=== PATIENT | female | born 1955 | race Caucasian/White ===

== ENCOUNTER → 2019-09-12 | Outpatient (CLI) | payer OTHER, MEDICARE ==
--- NOTE | 2019-09-12 11:56 | RAD ---
Examination: 1. Ultrasound-guided right breast core needle biopsy. 2. Right breast diagnostic mammogram. INDICATION: 64-year-old woman with suspicious nodule in the lateral subareolar right breast identified on high-risk screening breast MRI. The nodule initially detected on MRI of 10/25/2018 showed suspicious enhancement on follow up MRI of 08/03/2019 and internal vascularity on correlated diagnostic breast ultrasound of September 05, 2019. COMPARISON: Mammogram of 10/10/2018, breast MRI of 10/25/2018, a breast MRI 08/03/2019, Limited right breast ultrasound of 09/05/2019. TECHNIQUE AND FINDINGS: Informed consent was obtained and an appropriate procedural pause observed. Using standard sterile technique, ultrasound guidance and local anesthesia, multiple 12-gauge core biopsy samples of the oval, parallel orientation circumscribed 9 mm mass at the right 10:00 position 2 cm from the nipple. 3 core biopsy samples were obtained and an S shaped biopsy marker was deployed through the guide at the site of biopsy. Hemostasis was assured with direct breast compression for 10 minutes and a digital right postprocedure mammogram was obtained. The right post procedure mammogram shows satisfactory deployment of the biopsy marker in the lateral periareolar right breast in satisfactory position. There were no apparent complications. The breast parenchyma has scattered fibroglandular densities. IMPRESSION: Successful ultrasound-guided right breast core needle biopsy of a 9 mm oval mass at the right 9:00 position 2 cm from the nipple. Pathology results are pending. An addendum will be issued once pathology results become available
--- NOTE | 2019-09-13 14:06 | PATHOLOGY ---
[facility] Accession Number: [id number] . 01 Material submitted: . breast - RIGHT BREAST, 9:00, 2CMFN. Modifiers: right, 9:00 . 01 Clinical history: . Right breast 9:00 2 cm from nipple . 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 (JPM:briana; 09/13/2019) S 09/13/2019 0910 Local . 02 Comment: There is no atypia or evidence of malignancy. The case is also examined by Dr. Gutierrez, who concurs with the diagnosis. (JPM:briana; 09/13/2019) . 02 Electronically signed: . Chris Emery MD, Pathologist NPI- [id number] . 01 Gross description: . The specimen is received in formalin, labeled "Miguel Walker, right breast". Received are multiple needle cores of fibrofatty tissue measuring 1.6 x 1.0 x 0.3 cm in aggregate dimensions. The specimen is submitted entirely in cassettes A1 through A3. The cold ischemic time is 5 minutes. The total formalin fixation time is 12 hours and 35 minutes. (CAA; 09/12/2019) QAC/QAC 09/12/2019 1523 Local . 02 Pathologist provided ICD-10: D24.1, N60.81 . 02 CPT . 973547 Specimen Comment: A courtesy copy of this report has been sent to [phone] Specimen Comment: Report sent to Performed at: [address], [place] [id number] MD Armaan Vee MD Phone: [phone] Performed at: [address] [id number] MD Chris Emery MD Phone: [phone]
== END | disposition home or self-care (01) ==
LOC: US 08:11
PROVIDERS: ATTEND Surgery
DX: N63.10 Unspecified lump in the right breast, unspecified quadrant (principal); D24.1 Benign neoplasm of right breast; N60.11 Diffuse cystic mastopathy of right breast; N60.81 Other benign mammary dysplasias of right breast; Z88.0 Allergy status to penicillin; Z88.1 Allergy status to other antibiotic agents
CPT/HCPCS: 19083; 77065; 88305; C1713; 19081; 76942

== ENCOUNTER → 2019-10-26 | Outpatient (CLI) | payer OTHER, MEDICARE ==
[~2019-10-26] MED LIST: AMLO5TAB10 PO; ASPI-630 PO; ATOR40TA59 PO; CYCL10TA2 PO; DULO60CA6 PO; FEXO180T81 PO; HYDR-2763 PO; METF500T16 PO; MONT10TA49 PO; TRIA1CAP3 PO
--- NOTE | 2019-10-26 13:14 | PAIN ---
DATE OF SERVICE: 10/26/2019 INITIAL CONSULTATION FOR PAIN CLINIC CHIEF COMPLAINT: Low back and right lower extremity pain. HISTORY OF PRESENT ILLNESS: This is a 64-year-old female who presents with history of pain in the low back, right lower extremity for about 2 months. She had a fall on her left side at that time, but had pain in the back and the leg prior to that, it has gotten much worse so since that time. The patient did have an MRI scan of the lumbar spine performed on 10/06/2019 showing multilevel degenerative disk disease with L3-L4 asymmetric facet arthropathy on the right compared to the left along with dorsal osteophyte disk complex with encroachment of the bilateral exiting neural foramen and bilateral lateral recesses more significantly present on the right compared to the left. It shows L4-L5 also [id number] right neural foraminal encroachment and mild left neural foraminal encroachment. The patient reports significant pain with activity, walking, standing, changing positions with pain radiating to the right lower extremity, posterior gluteus, posterolateral thigh, anterior thigh, anterior medial thigh, medial lower leg and calf. The patient reports it is constant, sharp, stabbing, throbbing, shooting with tingling, numbness in the leg, cramping and aching in the low back itself, worse at night, worse with standing, walking, changing positions, better with sitting or lying down, but it is awakening her from sleep at night often, probably every hour to 2 hours. The patient reports it does not affect her bowel or bladder control, but does affect her ability to walk. She is not using any assistive devices to ambulate. The patient has tried hydrocodone, muscle relaxers, ibuprofen, Tylenol. The patient reports a muscle relaxer and hydrocodone did help to a moderate extent. Ibuprofen and Tylenol have not been helpful. She has been doing physical therapy exercises on her own at home. Her primary care physician gave her physical therapy exercises to do as physical therapy was closed at that time due to coronavirus pandemic, but she is doing stretching and strengthening at home and trying to walk daily, but it is becoming more difficult because of the right leg is becoming much more fatigued and weak with activity. The patient reports her disability rating from 0-10, 10 being the worst, is a 7 with family home responsibilities and recreation and life support activities, 9 with social activity and occupation, 10 with sexual behavior and 2 with self-care activities. PAST MEDICAL HISTORY: Significant for COPD; type 2 diabetes; asthma, exercise-induced; hypertension; hyperlipidemia; squamous cell cancer of the skin; dizziness; depression; arthritis. PREVIOUS SURGERIES: Include breast biopsy multiple times, skin cancer excisions, tonsillectomy, oophorectomy and in the past. CURRENT MEDICATIONS: Include metformin, daily baby aspirin, duloxetine, Fe, amlodipine, atorvastatin, triamterene and montelukast. ALLERGIES: THE PATIENT IS ALLERGIC TO KEFLEX, PENICILLIN AND EGGS. FAMILY HISTORY: Significant for diabetes, depression, dementia, cancer, hypertension and heart disease. SOCIAL HISTORY: The patient does not drink alcohol. Does smoke 1 pack of cigarettes a day for the past 7 years. Does not use any illegal, illicit or recreational drugs. She is , lives with her spouse, lives locally in [place], [place]. Reports that she is currently not on disability, but is retired. REVIEW OF SYSTEMS: The patient's review of systems is positive for those items mentioned in history of present illness. All systems reviewed and otherwise negative. It is complete, full and well documented on the patient's chart. PHYSICAL EXAMINATION: VITAL SIGNS: The patient's blood pressure 138/80, pulse 88, respirations 16, temperature 98.0 degrees Fahrenheit, height is 5 feet 7-1/2 inches and weight is 199 pounds. GENERAL: The patient is awake, alert, oriented, appropriate, very pleasant demeanor. HEENT: Shows normocephalic, atraumatic. Extraocular movements are intact and symmetrical. Oral cavity: Mucous membranes moist and pink. Dentition is intact. NECK: Shows anterior throat supple without palpable lymphadenopathy noted. Swallow reflex symmetrical. CHEST: Shows normal on inspection. Breath sounds are clear bilaterally. HEART: Shows S1, S2 clear. No murmurs auscultated. ABDOMEN: Soft, nontender, nondistended. No palpable organomegaly is noted. No rebound or guarding demonstrated. BACK: Shows spine grossly in the midline. Normal appearing thoracic kyphosis and lumbar lordotic curvature. Lumbar paraspinous muscle shows symmetrical on inspection, on palpation shows some moderate tenderness diffusely throughout the upper, middle and lower distribution of paraspinous muscles, but without atrophy, hypertrophy, no asymmetry, no trigger points. No tenderness over the spinous processes, sacrum or sacroiliac regions bilaterally. The patient shows good rotational motion of lumbar spine, both laterally greater than 10 degrees right and left as well as extension greater than 10 degrees, forward flexion at 45 degrees. EXTREMITIES: Lower extremities show deep tendon reflexes at 2+ in the patellar, 1+ tendo-calcaneus tendons. Motor exam is strong with 4 on a scale of 5 on the right and 5/5 on the left. Peripheral pulses are 1+ posterior tibia. No peripheral edema is noted. Lower extremities are warm and dry to touch, equal in color and appearance. Straight leg raise noted to be positive on the right at about 40 degrees, decreased with knee flexion and the left side is negative. Gaenslen's and Ron's maneuvers are negative bilaterally. The patient is able to stand, stand on her toes without significant difficulty or loss of balance, is walking with a fairly antalgic gait, does appear to favor the right lower extremity with ambulation, even for a short distance in the office today, but not using any assistive devices to ambulate. SKIN: The patient's skin shows warm and dry, good turgor. No edema. No sores, rashes or bruising throughout. IMPRESSION: 1. This is a 64-year-old female with long history of low back pain and radicular pain, worse for about 2 months on the right side at L3-L4 dermatomal distribution. 2. MRI scan of lumbar spine as noted. 3. Type 2 diabetes. 4. Hypertension. 5. Arthritis. PLAN: Options were discussed with the patient including conservative medical management, physical therapies, interventional techniques and she would like to pursue interventional techniques. We discussed a lumbar epidural steroid injection using description as well as anatomical models and she would like to pursue this. We will wait for preauthorization with her insurance provider. In the meantime, the patient will try Medrol Dosepak. The patient was given instruction and side effects to be aware, especially increased blood glucose. The patient will return for a translaminar lumbar epidural steroid injection at the L3-L4 level for her clinical L3-L4 right-sided radiculopathy. The patient was given instruction as well as side effects to be aware with the Medrol Antonio and will return as scheduled. HARRISON GALVEZ MD DR: GORGE/nicole JOB#: [id number] / [id number] FIONA Mujica MD
== END ==
LOC: PNCL 09:06
PROVIDERS: ATTEND Anesthesiology
DX: M79.604 Pain in right leg (principal); M54.5 Low back pain; E11.9 Type 2 diabetes mellitus without complications; I10 Essential (primary) hypertension; E78.5 Hyperlipidemia, unspecified; J44.9 Chronic obstructive pulmonary disease, unspecified; M19.90 Unspecified osteoarthritis, unspecified site
CPT/HCPCS: G0463

== ENCOUNTER → 2019-11-09 | Outpatient (CLI) | payer OTHER, MEDICARE ==
[~2019-11-09] MED LIST changes: +IOHEXOL 180 MG/ML 10 ML VIAL. ONE; +methylPREDNISolone ACETATE 40 MG/ML VIAL. ONE; +methylPREDNISolone ACETATE 80 MG/ML VIAL. ONE
--- NOTE | 2019-11-09 10:04 | PAIN ---
DATE OF SERVICE: 11/09/2019 PROGRESS NOTE FOR PAIN CLINIC DIAGNOSIS: Lumbar radiculopathy with lumbar degenerative disk disease. HISTORY OF PRESENT ILLNESS: The patient is a 64-year-old female who returns for followup status post initial evaluation and preauthorization for lumbar epidural steroid injection. The patient reports she has obtained and now would like to proceed. Still complains of pain in low back, right lower extremity, posterior gluteus, lateral thigh, anterior thigh, medial thigh, medial lower leg on the right, some on the left in the low back, but the patient reports it has not changed significantly. She did do much better after we tried a Medrol Dosepak about 3-4 days, the pain was decreased by about 65-70%. The patient reports that now it is returning in the low back, right leg, tingling, aching, sharp, dull, tight, shooting, cramping, stabbing at times, radiating into the leg as well as becoming constant, severe, unbearable with activity, worse with walking, standing, changing positions. The patient reports it is better with sitting or lying down, but it is awaken her from sleep about every 7 hours. The patient reports no new motor or sensory deficits, no new bowel or bladder incontinence or other complaints. PHYSICAL EXAMINATION: VITAL SIGNS: The patient's blood pressure 134/80, pulse 93, respirations 18, temperature 98.9 degrees Fahrenheit, weight is 202 pounds. GENERAL: The patient is awake, alert, oriented, appropriate, very pleasant demeanor. HEENT: Shows normocephalic, atraumatic. Extraocular movements are intact and symmetrical. Oral cavity: Mucous membranes moist and pink. Dentition is intact. NECK: Shows anterior throat supple without palpable lymphadenopathy noted. Swallow reflex symmetrical. CHEST: Shows normal on inspection. Breath sounds are clear bilaterally. No rales, rhonchi or wheezes auscultated. HEART: Shows S1, S2 clear. No murmurs auscultated. ABDOMEN: Soft, nontender, nondistended. No palpable organomegaly is noted. No rebound or guarding demonstrated. BACK: Shows spine grossly in the midline. Normal appearing thoracic kyphosis and minor flattening of lumbar lordotic curvature. Lumbar paraspinous muscle shows symmetrical on inspection, on palpation shows some moderate tenderness diffusely bilaterally, but only diffusely without significant radiation. The patient has good rotational motion of lumbar spine, both laterally as well as extension and flexion without significant increase in pain. EXTREMITIES: The patient's lower extremities show deep tendon reflexes at 2+ in the patellar, 1+ tendo-calcaneus tendons. Motor exam is approximately 4 on a scale of 5 on the right, 5/5 on the left with dorsiflexion, extension, quadriceps and hamstring flexion. Peripheral pulses are 1+. No peripheral edema is noted bilaterally. Options were discussed with the patient. The patient's old chart was reviewed as her current medication regimen updated. Current review of systems updated today as well. We will proceed with a lumbar epidural steroid injection today with fluoroscopic guidance. Risks were discussed including but not limited to bleeding, infection, possibility of epidural hematoma, subsequent neurological compromise, dural puncture, headaches, spinal cord and/or nerve damage, side effects of steroid medication and poor results regarding pain control. The patient understands and wished to proceed. The patient will return to clinic in approximately 2 weeks for followup. She was counseled on return appointment, activity level and side effects to be aware of. DIAGNOSIS: Lumbar radiculopathy with lumbar degenerative disk disease. PROCEDURE: Lumbar epidural steroid injection, translaminar approach at the L3-L4 level using C-arm fluoroscopic guidance under sterile prep and drape using local anesthetic. MEDICATION INJECTED: A total of 120 mg Depo-Medrol plus 10 mL of preservative-free normal saline and 2 mL of contrast. CONDITION AT DISCHARGE: Stable. The patient tolerated the procedure well, had no complications. HARRISON GALVEZ MD DR: GORGE/nicole JOB#: [id number] / [id number]
== END ==
LOC: PNCL 08:52
PROVIDERS: ATTEND Anesthesiology
DX: M51.16 Intervertebral disc disorders with radiculopathy, lumbar region (principal)
CPT/HCPCS: 62323; J1030; J1040; Q9965

== ENCOUNTER → 2019-11-23 | Outpatient (CLI) | payer OTHER, MEDICARE ==
--- NOTE | 2019-11-24 03:10 | PAIN ---
DATE OF SERVICE: 11/23/2019 PROGRESS NOTE FOR PAIN CLINIC DIAGNOSIS: Lumbar radiculopathy with lumbar degenerative disk disease. HISTORY OF PRESENT ILLNESS: The patient is a 64-year-old female who returns for followup status post lumbar epidural steroid injection x 1. The patient reports about 50% improvement overall, up to 70% some days, but most days about 50%. The patient reports the pain is still in the low back, right lower extremity, posterior gluteus, lateral thigh, anterior thigh, medial thigh, medial lower leg and sometimes in the posterior calf as well, worse with walking, standing, changing positions. The patient reports that she was increasing her activity though at home, in terms of walking greater distances and still is walking daily, doing a lot of gardening and decreased her pain medications significantly. The patient had only taken 1 in the past week, only 1 or 2 a day. The patient reports the pain is 7 on a scale of 10 at its worst over the past week, 3-7 on average, probably a 5 and a 3 on its least in the past week and is a 5 today. The patient reports no new motor or sensory deficits, no new bowel or bladder incontinence or other complaints, sleeping well at night, does not awaken her from sleep. PHYSICAL EXAMINATION: VITAL SIGNS: The patient's blood pressure 132/79, pulse 88, respirations 16, temperature is 98.4 degrees Fahrenheit, weight is 199 pounds. GENERAL: The patient is awake, alert, oriented, appropriate, very pleasant demeanor. HEENT: Shows normocephalic, atraumatic. Extraocular movements are intact and symmetrical. Oral cavity: Mucous membranes moist and pink. Dentition is intact. NECK: Shows anterior throat supple without palpable lymphadenopathy noted. Swallow reflex symmetrical. CHEST: Shows normal on inspection. Breath sounds are clear bilaterally. HEART: Shows S1, S2 clear. No murmurs auscultated. ABDOMEN: Soft, nontender, nondistended. BACK: Shows spine grossly in the midline. Normal appearing thoracic kyphosis, some minor flattening of lumbar lordotic curvature. Lumbar paraspinous muscle shows symmetrical on inspection, on palpation shows some moderate tenderness diffusely bilaterally, but only diffusely without significant radiation. The patient has good rotational motion of lumbar spine, both laterally as well as extension and flexion without pain reported. EXTREMITIES: Lower extremities show deep tendon reflexes 2+ in the patellar and 1+ tendo-calcaneus tendons. Motor exam is approximately 4 on a scale of 5 on the right and 5/5 on the left. Peripheral pulses are 1+. No peripheral edema bilaterally. Options were discussed with the patient. The patient's old chart was reviewed as her current medication regimen updated and review of systems updated today as well and we will proceed with a second in the series of lumbar epidural steroid injection today with fluoroscopic guidance. Risks were again discussed including, but not limited to bleeding, infection, possibility of epidural hematoma, subsequent neurological compromise, dural puncture, headaches, spinal cord and/or nerve damage, side effects of steroid medication and poor results regarding pain control. The patient understands and wished to proceed. The patient will return to clinic in approximately 2 weeks for followup. She was counseled on return appointment, activity level and side effects to be aware of. DIAGNOSIS: Lumbar radiculopathy with lumbar degenerative disk disease. PROCEDURE: Lumbar epidural steroid injection, translaminar approach at L3-L4 level using C-arm fluoroscopic guidance under sterile prep and drape using local anesthetic. MEDICATION INJECTED: A total of 120 mg Depo-Medrol plus 10 mL of preservative-free normal saline and 2 mL of contrast. CONDITION AT DISCHARGE: Stable. The patient tolerated the procedure well, had no complications. HARRISON GALVEZ MD DR: GORGE/nicole JOB#: [id number] / [id number]
== END | disposition home or self-care (01) ==
LOC: PNCL 08:42
PROVIDERS: ATTEND Anesthesiology
DX: M51.16 Intervertebral disc disorders with radiculopathy, lumbar region (principal); I10 Essential (primary) hypertension; E11.9 Type 2 diabetes mellitus without complications; E78.5 Hyperlipidemia, unspecified; Z79.82 Long term (current) use of aspirin; Z88.0 Allergy status to penicillin; Z88.8 Allergy status to other drugs, medicaments and biological substances; Z79.899 Other long term (current) drug therapy
CPT/HCPCS: 62323; J1030; J1040; Q9965